=== PATIENT | female | born 1975 | race Two or more races ===

== ENCOUNTER 2025-05-07 21:07 | Emergency (ER) | payer OTHER ==
[~2025-05-07] VITALS: Ht 154.9 cm; Wt 56.7 kg
[2025-05-07] MEDS ORDERED: LEVOTHYROXINE25 MCG PO (21:39)
[2025-05-07] MEDS ORDERED: ONDANSETRON HCL 2 MG/ML VIAL IV ONE (22:00)
[2025-05-07] MEDS ORDERED: 0.9 % SODIUM CHLORIDE 1,000 ML IV ONE (22:00)
[2025-05-07] MEDS ORDERED: FAMOtidine 10 MG/ML (4ML VIAL) IV ONE (22:00)
[2025-05-07] MEDS ORDERED: FAMOTIDINE/PF 20 MG/2 ML VIAL ONE (22:04)
[2025-05-07] MEDS ORDERED: ONDANSETRON HCL 2 MG/ML VIAL ONE (22:04)
[2025-05-07 22:37] LABS: BASO % 0.3 % (0.1-1.2); EOS # 0.03 (0.04-0.54); EOS % 0.2 % (0.7-7.0); HEMOGLOBIN 12.9 g/dL (11.2-15.7); LYMPH # 0.35 (1.18-3.74); LYMPH % 2.3 % (19.3-53.1); MEAN CORPUSCULAR HEMOGLOBIN 32.1 pg (25.6-32.2); NEUT # 13.58 (1.56-6.13); NEUT % 90.8 % (34.0-71.1); PLATELET COUNT 279 K/uL (163-369); RED BLOOD COUNT 4.02 M/uL (3.93-5.22); RED CELL DISTRIBUTION WIDTH 12.4 % (11.6-14.4)
[2025-05-07 23:05] LABS: INR 1.01
[2025-05-07 23:06] LABS: ALBUMIN 3.6 gm/dL (3.4-5.0); BILIRUBIN TOTAL 0.61 mg/dL (0.3-1.2); CALCIUM 8.8 mg/dL (8.5-10.1); CREATININE SERUM 0.93 mg/dL (0.55-1.02); GFR 63.81; GLOBULINA 3.4 G/DL (2.4-3.5); POTASSIUM 4.15 mEq/L (3.5-5.1)
[2025-05-07 23:13] LABS: PARTIAL THROMBOPLASTIN TIME < 20.0 SECONDS (22.0-34.0)
[2025-05-08 00:47] LABS: PH,URINE 6.5 (5.0-8.0); URINE APPEARANCE Clear; URINE BILIRRUBIN Negative (NEGATIVE); URINE BLOOD Small; URINE COLOR Yellow; URINE GLUCOSE Negative (NEGATIVE); URINE KETONE 15 (NEGATIVE); URINE LEUKOCYTE Negative; URINE NITRATE Negative; URINE PROTEIN Negative (NEGATIVE); URINE UROBILINOGEN 0.2 E.U./dl
[2025-05-08 00:51] LABS: URINE BACTERIA 53.8 uL (0.0-1933); URINE RBC 6.1 uL (0.0-20.8); URINE WBC 2.1 uL (0.0-23.2)
[2025-05-08 01:04] LABS: URINE CAST 0.29 uL (0.0-1.40); URINE EPITHELIAL CELLS 0.7 uL (0.0-38.8)
[2025-05-08] MEDS ORDERED: PIPERACILLIN/TAZOBACTAM SODIUM 3.375 GM VIAL IV STA (03:05)
[2025-05-08] MEDS ORDERED: PIPERACILLIN/TAZOBACTAM SODIUM 3.375 GM VIAL IV ONE (03:06)
== END 2025-05-08 04:36 | disposition home or self-care (01) ==
LOC: ER 21:23
PROVIDERS: General Practice
DX: R10.13 Epigastric pain (principal); E03.8 Other specified hypothyroidism